=== PATIENT | male | born 1995 | race American Indian/Alaskan Native ===

== ENCOUNTER 2019-09-15 20:36 | Emergency (ER) | payer SELFPAY ==
[2019-09-15] MEDS ORDERED: TETANUS,DIPH,PERTUSS(ACELL) VACCINE 0.5 ML SYRINGE IM ONE (22:28)
[2019-09-15] MEDS ORDERED: IBUPROFEN 600 MG TAB PO ONE (22:28)
[2019-09-15] MEDS ORDERED: cephALEXin 500 MG CAP PO ONE (22:29)
--- NOTE | 2019-09-15 22:32 | Event Note ---
ED Screening Note Date of service: 09/15/19 Time: 22:29 ED Screening Note: Patient presents to the ED with distal left middle finger pain, bleeding and partial nail avulsion after injury initially over 1 month ago when car door smashed the left middle finger, and about 1 week ago when he accidentally hit his left middle finger with a sledge hammer. Family states that the discharge from the finger has malodorous smell. Patient is not upto date with vaccinations. In triage patient is alert and oriented x 3 and is in no acute distress. This initial assessment/diagnostic orders/clinical plan/treatment(s) is/are subject to change based on patients health status, clinical progression and re- assessment by fellow clinical providers in the ED. Further treatment and workup at subsequent clinical providers discretion. Patient/guardian urged not to elope from the ED as their condition may be serious if not clinically assessed and managed. Initial orders include: Left middle finger x-ray Boostix injection
--- NOTE | 2019-09-15 23:12 | XRay Report ---
Left long finger-3 views INDICATION: traumatic injury. Crushing injury to the third finger COMPARISON: None. IMPRESSION: Soft tissue swelling involving the tip of the long finger with air that appears to be be neath the fingernail and nondisplaced fracture involving the distal tuft. Otherwise unremarkable patricia ngo Signer Name: Efe Drake MD Signed: 09/15/2019 11:08 PM Workstation Name: [id number]
[2019-09-16] MEDS ORDERED: cephALEXin 500 MG CAP ONE (02:53)
[2019-09-16] MEDS ORDERED: IBUPROFEN 600 MG TAB PO ONE (02:53)
[2019-09-16] MEDS ORDERED: TETANUS,DIPH,PERTUSS(ACELL) VACCINE 0.5 ML SYRINGE IM ONE (02:54)
--- NOTE | 2019-09-16 03:53 | Emergency Department Report ---
ED Extremity Problem HPI - General Chief complaint: Extremity Injury, Upper Stated complaint: SMASHED FINGER Source: patient Mode of arrival: Ambulatory Limitations: No Limitations - History of Present Illness Initial comments: Patient presents to the ED with distal left middle finger bleeding and partial nail avulsion after injury initially over 1 month ago when car door smashed the left middle finger, and about 1 week ago when he accidentally hit his left middle finger with a sledge hammer. Family states that there was discharge from the finger that has malodorous smell. Patient is not up to date with vaccinations. He denies any pain, fever/chills/bodyaches, or loss of sensation/ROM in his finger. Severity scale (0 -10): 5 - Related Data Previous Rx's Medication Instructions Recorded Last Taken Type Clindamycin [Clindamycin CAP] 300 mg PO Q6H 10 Days #40 capsule 09/16/19 Unknown Rx Mupirocin [Bactroban 2% OINT] 1 applic TP TID 7 Days #1 tube 09/16/19 Unknown Rx Allergies Allergy/AdvReac Type Severity Reaction Status Date / Time No Known Allergies Allergy Verified 09/15/19 20:49 ED Review of Systems ROS: Stated complaint: SMASHED FINGER Other details as noted in HPI Constitutional: denies: chills, fever, malaise, weakness Musculoskeletal: denies: joint swelling, arthralgia Skin: as per HPI ED Past Medical Hx - Past Medical History Previous Medical History?: No - Surgical History Past Surgical History?: No - Social History Smoking Status: Never Smoker Substance Use Type: None - Medications Home Medications: Home Medications Medication Instructions Recorded Confirmed Last Taken Type Clindamycin [Clindamycin CAP] 300 mg PO Q6H 10 Days #40 capsule 09/16/19 Unknown Rx Mupirocin [Bactroban 2% OINT] 1 applic TP TID 7 Days #1 tube 09/16/19 Unknown Rx ED Physical Exam - General Limitations: No Limitations General appearance: alert, in no apparent distress - Head Head exam: Present: atraumatic, normocephalic - Eye Eye exam: Present: normal appearance - Respiratory Respiratory exam: Absent: respiratory distress - Cardiovascular Cardiovascular Exam: Present: regular rate - Expanded Upper Extremity Exam Left Hand Wrist exam: Present: full ROM, tenderness, deformity, nail avulsion, other (partially healing laceration along the left middle finger nailbed noted with active bleeding. No purulent drainage or erythema noted. Normal perfusion of finger noted. Mild tenderness to palpation noted.). Absent: ecchymosis ED Course Vital Signs 09/15/19 09/16/19 22:23 03:00 Temperature 97.9 F Pulse Rate 60 Respiratory 18 18 Rate Blood Pressure 145/66 O2 Sat by Pulse 97 Oximetry ED Medical Decision Making - Radiology Data Radiology results: report reviewed Left long finger-3 views INDICATION: traumatic injury. Crushing injury to the third finger COMPARISON: None. IMPRESSION: Soft tissue swelling involving the tip of the long finger with air that appears to be beneath the fingernail and nondisplaced fracture involving the distal tuft. Otherwise unremarkable exam. Signer Name: Efe Drake MD Signed: 09/15/2019 11:08 PM Workstation Name: [id number] - Medical Decision Making 23-year-old male patient here with left middle finger injury that occurred after smashing his finger with a sledge hammer at work 1 week ago. Patient noted to have an partially healing wound with nail bed injury of the left finger. No erythema or purulent drainage noted on exam. X-ray shows distal tuft fracture, nondisplaced. Patient was given Keflex 1000 mg orally and tetanus shot was updated. Splint and wound dressing applied. He is afebrile and nontachycardic. Patient is stable for discharge home with treatment for open fracture. Discussed the importance of follow-up with orthopedics within the next 1-2 days. Also discussed in detail wound care instructions and strict return precautions with patient who verbalizes understanding. Critical care attestation.: If time is entered above; I have spent that time in minutes in the direct care of this critically ill patient, excluding procedure time. ED Disposition Clinical Impression: Open fracture of distal phalanx of left middle finger Qualifiers: Encounter type: initial encounter Fracture alignment: nondisplaced Qualified Code(s): S62.663B - Nondisplaced fracture of distal phalanx of left middle finger, initial encounter for open fracture Disposition: - TO HOME OR SELFCARE Is pt being admited?: No Condition: Stable Prescriptions: Mupirocin [Bactroban 2% OINT] 1 applic TP TID 7 Days #1 tube Clindamycin [Clindamycin CAP] 300 mg PO Q6H 10 Days #40 capsule Referrals: JERILYN RG MD [Staff Physician] - 24 Hours
[2019-09-16 05:15] VITALS: BP 156/88
== END 2019-09-16 05:30 | disposition home or self-care (01) ==
LOC: ED 20:36
DX: S62.663B Nondisplaced fracture of distal phalanx of left middle finger, initial encounter for open fracture (principal); Z79.899 Other long term (current) drug therapy; W22.8XXA Striking against or struck by other objects, initial encounter; Y93.89 Activity, other specified; Y92.89 Other specified places as the place of occurrence of the external cause; Y99.8 Other external cause status
CPT/HCPCS: 90471; 90715